=== PATIENT | male | born 1975 | race Hispanic/Latino ===

== ENCOUNTER → 2017-09-21 | Outpatient (CLI) | payer OTHER ==
[2017-09-21 09:03] LABS: BASOPHILS % (AUTO) 0.8 % (0.0-5.0); EOSINOPHILS % (AUTO) 2.4 % (0.0-8.0); HEMATOCRIT 44.8 % (42-54); LYMPHOCYTES % (AUTO) 25.3 % (21.0-51.0); MEAN CORPUSCULAR HEMOGLOBIN 29.9 pg (27.0-33.0); MEAN CORPUSCULAR HGB CONC 33.7 g/dL (32.0-36.0); MEAN CORPUSCULAR VOLUME 88.8 fL (79-99); MONOCYTES % (AUTO) 9.3 % (3.0-13.0); NEUTROPHILS % (AUTO) 62.2 % (40.0-77.0); PLATELET COUNT (AUTO) 233 K/uL (130-400); RED BLOOD CELL COUNT(AUTO) 5.04 MIL/uL (4.50-6.20); RED CELL DISTRIBUTION WIDTH 12.8 % (11.0-15.5); WHITE BLOOD COUNT (AUTO) 10.5 K/uL (4.8-10.8)
[2017-09-21 09:27] LABS: BILIRUBIN,TOTAL 0.3 mg/dL (0.2-1.0); CREATININE 0.9 mg/dL (0.5-1.5); POTASSIUM 3.6 mmol/L (3.5-5.1); THYROID STIMULATING HORMONE 2.39 uIU/mL (0.36-3.74); TOTAL PROTEIN, SERUM 7.5 g/dL (6.0-8.3)
[2017-09-21 09:27] LABS: BILIRUBIN,URINE Negative (NEGATIVE); COLOR,URINE Yellow (YELLOW); GLUCOSE, URINE (UA) Negative (NEGATIVE); KETONES,URINE Negative (NEGATIVE); LEUKOCYTE ESTERASE ,URINE Negative (NEGATIVE); NITRATE,URINE Negative (NEGATIVE); OCCULT BLOOD,URINE Negative (NEGATIVE); PROTEIN,URINE Negative (NEGATIVE); UROBILINOGEN,URINE 0.2 mg/dL (0.2-1.0)
[2017-09-21 09:28] LABS: APPEARANCE,URINE CLEAR (CLEAR)
[2017-09-21 10:07] LABS: ERYTHROCYTE SEDIMENTATION RATE 1 MM/HR (0-15)
== END | disposition home or self-care (01) ==
LOC: LAB 08:27
PROVIDERS: ATTEND Nurse Practitioner Family
DX: Z00.01 Encounter for general adult medical examination with abnormal findings (principal); R79.89 Other specified abnormal findings of blood chemistry
CPT/HCPCS: 36415; 80053; 80061; 81003; 82306; 84443; 85025; 85651

== ENCOUNTER 2018-03-08 16:31 | Emergency (ER) | payer OTHER ==
[2018-03-08 16:55] LABS: BASOPHILS % (AUTO) 0.9 % (0.0-5.0); EOSINOPHILS % (AUTO) 1.1 % (0.0-8.0); HEMATOCRIT 47.5 % (42-54); LYMPHOCYTES % (AUTO) 25.6 % (21.0-51.0); MEAN CORPUSCULAR HEMOGLOBIN 30.1 pg (27.0-33.0); MEAN CORPUSCULAR HGB CONC 33.7 g/dL (32.0-36.0); MEAN CORPUSCULAR VOLUME 89.3 fL (79-99); MONOCYTES % (AUTO) 8.2 % (3.0-13.0); NEUTROPHILS % (AUTO) 64.2 % (40.0-77.0); PLATELET COUNT (AUTO) 231 K/uL (130-400); RED BLOOD CELL COUNT(AUTO) 5.32 MIL/uL (4.50-6.20); WHITE BLOOD COUNT (AUTO) 10.1 K/uL (4.8-10.8)
[2018-03-08 17:09] LABS: INR 1.01 (0.85-1.15); PARTIAL THROMBOPLASTIN TIME 27.1 SEC (26.3-35.5); PROTHROMBIN TIME 10.6 SEC (9.6-11.6)
[2018-03-08 17:11] LABS: POTASSIUM 3.8 mmol/L (3.5-5.1)
[2018-03-08 17:16] LABS: ALBUMIN 4.1 g/dL (3.5-5.0); BILIRUBIN,TOTAL 0.4 mg/dL (0.2-1.0); TOTAL PROTEIN, SERUM 7.9 g/dL (6.0-8.3)
[2018-03-08 17:35] LABS: CREATINE KINASE, TOTAL 108 U/L (21-232); MYOGLOBIN 32 ng/mL (10-92); TROPONIN I < 0.04 ng/mL (0.00-0.06)
== END 2018-03-08 18:34 | disposition home or self-care (01) ==
LOC: EDH 16:31
DX: R07.89 Other chest pain (principal)
CPT/HCPCS: 36415; 80053; 82550; 83874; 84484; 85025; 85610; 85730; 93005

== ENCOUNTER 2019-11-01 07:21 | Emergency (ER) | payer OTHER, SELFPAY ==
[2019-11-01] MEDS ORDERED: AZITHROMYCIN 250 MG TABLET PO ONE (10:29)
[2019-11-01] MEDS ORDERED: ACETAMINOPHEN EXTRA STRENGTH 500 MG TABLET ONE (10:29)
== END 2019-11-01 12:04 | disposition home or self-care (01) ==
LOC: EDH 07:21
DX: U07.1 COVID-19 (principal); J12.89 Other viral pneumonia
CPT/HCPCS: 36415; 71045; 80053; 82550; 82728; 83605; 84145; 84484; 85025; 85378; 85610; 85730; 86140; 87804 ×2; 87880; 93005; 99285; U0003

== ENCOUNTER 2020-10-11 20:59 | Emergency (ER) | payer OTHER, SELFPAY ==
[~2020-10-11] VITALS: Ht 170.2 cm; Wt 70.8 kg
[2020-10-11 21:03] VITALS: BP 116/84
[2020-10-11 21:29] LABS: BASOPHILS % (AUTO) 0.6 % (0.0-5.0); EOSINOPHILS % (AUTO) 1.7 % (0.0-8.0); HEMATOCRIT 44.4 % (42-54); LYMPHOCYTES % (AUTO) 29.1 % (21.0-51.0); MEAN CORPUSCULAR HEMOGLOBIN 28.5 pg (27.0-33.0); MEAN CORPUSCULAR HGB CONC 33.3 g/dL (32.0-36.0); MEAN CORPUSCULAR VOLUME 85.5 fL (79-99); MONOCYTES % (AUTO) 18.4 % (3.0-13.0); NEUTROPHILS % (AUTO) 49.8 % (40.0-77.0); PLATELET COUNT (AUTO) 247 K/uL (130-400); RED BLOOD CELL COUNT(AUTO) 5.19 MIL/uL (4.50-6.20); RED CELL DISTRIBUTION WIDTH 12.2 % (11.0-15.5); WHITE BLOOD COUNT (AUTO) 8.2 K/uL (4.8-10.8)
[2020-10-11] MEDS ORDERED: ONDANSETRON HCL 4 MG/2 ML VIAL IVP SCH (21:30)
[2020-10-11] MEDS ORDERED: METOCLOPRAMIDE 10 MG/2 ML VIAL IVP SCH (22:00)
[2020-10-11 22:03] LABS: CREATININE 1.1 mg/dL (0.5-1.5); POTASSIUM 3.4 mmol/L (3.5-5.1)
[2020-10-11 22:08] VITALS: BP 140/82
[2020-10-11 22:08] LABS: ALBUMIN 3.4 g/dL (3.5-5.0); BILIRUBIN,TOTAL 0.3 mg/dL (0.2-1.0); TOTAL PROTEIN, SERUM 7.2 g/dL (6.0-8.3)
[2020-10-11] MEDS ORDERED: LEVOFLOXACIN 500 MG TABLET PO SCH (22:30)
[2020-10-11] MEDS ORDERED: DICY20TA2 PO (22:31)
[2020-10-11] MEDS ORDERED: CIPR-278 PO (22:31)
== END 2020-10-11 23:30 | disposition home or self-care (01) ==
LOC: EDH 21:12
DX: K52.9 Noninfective gastroenteritis and colitis, unspecified (principal); Z79.899 Other long term (current) drug therapy
CPT/HCPCS: 36415; 80053; 83605; 83630; 85025; 87040 ×2; 87177; 96374; 96375; 99284; J2405; J2765

== ENCOUNTER 2023-08-11 23:06 | Emergency (ER) | payer BC ==
[~2023-08-11] VITALS: Ht 170.2 cm; Wt 68.0 kg
[~2023-08-11 23:06] MED LIST: CIPR-278 PO; DICY20TA2 PO
[2023-08-11 23:08] VITALS: BP 140/89; PULSE 73; RESP 18
[2023-08-12] MEDS: ONDANSETRON ODT 4MG TAB SL ONE (00:14)
[2023-08-12] MEDS: IBUPROFEN 600 MG TABLET PO ONE (00:14)
[2023-08-12] MEDS: HYDROCODONE/ACETAMINOPHEN 5/325 MG TAB PO ONE (00:14)
[2023-08-12] MEDS: TIZANIDINE HCL 2 MG TABLET PO SCH (00:14)
[2023-08-12 00:32] LABS: APPEARANCE,URINE CLEAR (CLEAR); BILIRUBIN,URINE NEGATIVE (NEGATIVE); COLOR,URINE LIGHT-YELLOW (YELLOW); GLUCOSE, URINE (UA) NEGATIVE (NEGATIVE); KETONES,URINE NEGATIVE (NEGATIVE); LEUKOCYTE ESTERASE ,URINE NEGATIVE Leu/uL (NEGATIVE); NITRATE,URINE NEGATIVE (NEGATIVE); OCCULT BLOOD,URINE SMALL (NEGATIVE); PH,URINE 5.5 (5.0-8.0); PROTEIN,URINE NEGATIVE (NEGATIVE); UROBILINOGEN,URINE 0.2 mg/dL (0.2-1.0)
[2023-08-12 00:40] LABS: ADD UA MICROSCOPIC YES
[2023-08-12 00:41] LABS: BACTERIA,URINE RARE /HPF (None Seen); MUCUS,URINE RARE LPF (None Seen); WBC,URINE 0-1 /HPF (0-1)
[2023-08-12] MEDS ORDERED: IBUP-2070 PO (00:56)
[2023-08-12] MEDS ORDERED: GABA300C PO (00:56)
[2023-08-12] MEDS ORDERED: METH-811 PO (00:56)
[2023-08-12] MEDS ORDERED: PRED20TA3 PO (00:56)
== END 2023-08-12 01:04 | disposition home or self-care (01) ==
LOC: EDH 23:06
DX: M54.41 Lumbago with sciatica, right side (principal); I10 Essential (primary) hypertension; Z79.899 Other long term (current) drug therapy
CPT/HCPCS: 72100; 81001

== ENCOUNTER 2023-12-03 12:24 | Emergency (ER) | payer BC ==
[~2023-12-03] VITALS: Ht 170.2 cm; Wt 70.3 kg
[~2023-12-03 12:24] MED LIST changes: +GABA300C PO; +IBUP-2070 PO; +METH-811 PO; +PRED20TA3 PO
[2023-12-03] MEDS: KETOROLAC 15MG/ML VIAL (15MG/ML) IM ONE (12:55)
[2023-12-03] MEDS ORDERED: KETO10 PO (13:51)
[2023-12-03 14:09] VITALS: BP 149/84; PULSE 78; RESP 20; O2SAT 99
== END 2023-12-03 14:15 | disposition home or self-care (01) ==
LOC: EDH 12:24
DX: S49.81XA Other specified injuries of right shoulder and upper arm, initial encounter (principal); I10 Essential (primary) hypertension; Z79.899 Other long term (current) drug therapy; W01.0XXA Fall on same level from slipping, tripping and stumbling without subsequent striking against object, initial encounter; Y93.89 Activity, other specified; Y92.89 Other specified places as the place of occurrence of the external cause; Y99.8 Other external cause status
CPT/HCPCS: 99284; 73030; 96372; J1885